=== PATIENT | female | born 1950 ===

== ENCOUNTER 2019-12-27 12:20 | Emergency (ER) | payer MEDICARE, OTHER ==
[~2019-12-27] VITALS: Ht 162.6 cm; Wt 75.0 kg
[2019-12-27 12:28] VITALS: Ht 162.6 cm; Wt 75.0 kg
[2019-12-27] MEDS ORDERED: PAXIL40 MG PO (12:30)
[2019-12-27] MEDS ORDERED: CATAPRES0.1 MG PO (12:31)
[2019-12-27] MEDS ORDERED: LAMICTAL ODT50 MG PO (12:31)
[2019-12-27] MEDS ORDERED: ZOVIRAX200 MG PO (12:32)
[2019-12-27] MEDS ORDERED: AUGMENTIN 875-11 TAB PO (14:35)
[2019-12-27 15:09] VITALS: BP 159/85
== END 2019-12-27 14:55 | disposition home or self-care (01) ==
LOC: D.ER 12:20
DX: S02.31XA Fracture of orbital floor, right side, initial encounter for closed fracture (principal); S05.41XA Penetrating wound of orbit with or without foreign body, right eye, initial encounter; W19.XXXA Unspecified fall, initial encounter; Y93.9 Activity, unspecified; Y92.9 Unspecified place or not applicable; S02.40CA Maxillary fracture, right side, initial encounter for closed fracture